=== PATIENT | male | born 1965 ===

== ENCOUNTER → 2022-02-24 | Outpatient (CLI) | payer BC ==
[2022-02-26 22:08] LABS: CHLAMYDIA TRACHOMATIS, NAA Negative (Negative)
== END | disposition home or self-care (01) ==
LOC: LAB 18:45 → LAB SHORT 18:45
PROVIDERS: Physician Assistant
DX: N34.1 Nonspecific urethritis (principal)
CPT/HCPCS: 87086; 87491; 87591